=== PATIENT | female | born 1955 | race African-American/Black ===

== ENCOUNTER 2018-05-31 17:13 | Emergency (ER) | payer MEDICAID ==
[~2018-05-31] VITALS: Ht 170.2 cm; Wt 70.3 kg
[2018-05-31 17:22] VITALS: BP 122/71
--- NOTE | 2018-05-31 17:31 | NUR ---
dr hensley at bedside
--- NOTE | 2018-05-31 17:31 | NUR ---
PT AMBULATED TO BED 8, REPORT TO TREVA REY
[2018-05-31] MEDS ORDERED: ALBUTEROL 0.083% 2.5 MG/3 ML NEBU INH ONE (17:35)
--- NOTE | 2018-05-31 17:35 | NUR ---
62 Y F PT BIB SELF C/O SOB AT REST X 2 DAYS AND NONPRODUCTIVE COUGH X 1 WEEK. 94% ON RA, HX OF ASTHMA, AUDIBLE WHEEZING ON EXPIRATION. TOOK RESCUE INHALER AT HOME WITHOUT RELIEF AT 1000 TODAY. DENEIS CP/FEVERS/NVD/CHILLS. PMH- HTN, DM, ASTHMA RX- METFORMIN, BP MED PT DOESNT KNOW NAME, ALBUTEROL
--- NOTE | 2018-05-31 17:52 | NUR ---
rt at bedside
[2018-05-31] MEDS ORDERED: predniSONE 20 MG TAB PO ONE (18:05)
[2018-05-31] MEDS ORDERED: NACL 0.9% 1,000 ML IV ONE (18:10)
[2018-05-31] MEDS ORDERED: MAG SULF 2000 MG/WATER PREMIX 50 ML IV ONE (18:10)
[2018-05-31] MEDS ORDERED: methylPREDNISolone SS 125 MG in WATER STERILE 2 ML IV ONE (18:10)
--- NOTE | 2018-05-31 19:15 | NUR ---
Pt report given to bonnie saavedra. Transfer of care at this time.
--- NOTE | 2018-05-31 19:36 | NUR ---
DISCHARGE INSTRUCTIONS PROVIDED BY DR. GARCIA. PATIENT GIVEN PRESCRIPTIONS AND D/C PAPER WORK. IV REMOVED, CATH INTACT. AMB. WITH STEADY GAIT. VSS.
[2018-05-31 19:37] VITALS: BP 120/79
== END 2018-05-31 19:36 | disposition home or self-care (01) ==
LOC: MED 17:13
DX: J44.1 Chronic obstructive pulmonary disease with (acute) exacerbation (principal); J45.909 Unspecified asthma, uncomplicated; E11.9 Type 2 diabetes mellitus without complications; I10 Essential (primary) hypertension; F17.210 Nicotine dependence, cigarettes, uncomplicated; Z90.49 Acquired absence of other specified parts of digestive tract; Z90.710 Acquired absence of both cervix and uterus
CPT/HCPCS: 94640; 96365; 96375; 99283; J2930; J3475; J7030; J7613